=== PATIENT | female | born 1940 | race Caucasian/White ===

== ENCOUNTER 2017-05-24 09:36 | Inpatient (IN) | payer OTHER ==
[2017-05-05 09:29] VITALS: BMI 33.0
--- NOTE | 2017-05-05 10:10 | PAT Medication Instructions ---
Service Date May 05, 2017. Current Home Medication List Albuterol Sulfate (Proair Respiclick), 2 PUFF INH Q4 PRN for SOB/Wheezing Aspirin Enteric Coated (Ecotrin Or Generic *), 81 MG PO HS Atenolol (Tenormin), 25 MG PO QAM Calcium Citrate-Vitamin D (Citracal + D3 Maximum), 1 TAB PO NOON Cetirizine (Zyrtec), 10 MG PO QAM Coenzyme Q10 (Ubidecarenone) (Co Q10 *), 1 CAP PO NOON Fenofibrate (Tricor ), 134 MG PO QPM Fluticasone Prop/Salmeterol (Advair Hfa 115/21 Mcg *), 2 PUFF INH HS Gabapentin (Neurontin), 300 MG PO BID Lisinopril (Prinivil), 10 MG PO QPM Tizanidine (Zanaflex), 4 MG PO HS Tramadol (Ultram), 50 MG PO Q8H PRN for Pain [Cranberry/Vit C], 1 TAB PO NOON Medication Instructions For Your Scheduled Surgery - Hold the following medications 1 week prior to surgery: Aspirin Enteric Coated (Ecotrin Or Generic *), 81 MG PO HS (per surgeon's instructions) Coenzyme Q10 (Ubidecarenone) (Co Q10 *), 1 CAP PO NOON - Hold the following medications the morning of surgery: Cetirizine (Zyrtec), 10 MG PO QAM Calcium Citrate-Vitamin D (Citracal + D3 Maximum), 1 TAB PO NOON [Cranberry/Vit C], 1 TAB PO NOON - Take the following medications the morning of surgery with a sip of water OTHERWISE NOTHING TO EAT OR DRINK AFTER MIDNIGHT: Atenolol (Tenormin), 25 MG PO QAM Tramadol (Ultram), 50 MG PO Q8H PRN for Pain (may take if needed up to 4 hours prior to surgery) Albuterol Sulfate (Proair Respiclick), 2 PUFF INH Q4 PRN for SOB/Wheezing (use if needed; BRING TO HOSPITAL) Gabapentin (Neurontin), 300 MG PO BID - Take the following medications as scheduled the night before surgery: Tramadol (Ultram), 50 MG PO Q8H PRN for Pain Albuterol Sulfate (Proair Respiclick), 2 PUFF INH Q4 PRN for SOB/Wheezing Tizanidine (Zanaflex), 4 MG PO HS Fluticasone Prop/Salmeterol (Advair Hfa 115/21 Mcg *), 2 PUFF INH HS Gabapentin (Neurontin), 300 MG PO BID - Do not take the following the evening prior to surgery: Fenofibrate (Tricor ), 134 MG PO QPM Lisinopril (Prinivil), 10 MG PO QPM If you have any questions please call us at [phone] or [phone] or [phone]
[2017-05-05 10:42] LABS: BASO % 0.6 %; BASO ABS # 0.03 K/uL (0-0.2); COMPLETE YES; EOS % 3.2 %; HEMATOCRIT 42.6 % (37-47); IG% 0.2 %; LYMPH % 32.9 %; LYMPH ABS # 1.66 K/uL (1.2-3.4); MEAN CELL VOLUME 95.5 fL (80-100); MEAN CORPUSCULAR HGB CONC 31.5 g/dl (32-36); MEAN PLATELET VOLUME 9.4 fL (7.4-10.4); MONO % 10.9 %; NEUT % 52.2 %; PLATELET COUNT 206 K/uL (130-400); RED BLOOD COUNT 4.46 M/uL (4.2-5.4); WHITE BLOOD COUNT 5.05 K/uL (4.8-10.8)
[2017-05-05 11:11] LABS: BUN/CREATININE RATIO 29.2 (10-20); CALCIUM 9.6 mg/dl (8.5-10.1); CREATININE 1.5 mg/dl (0.60-1.20); POTASSIUM 4.9 mmol/L (3.5-5.1)
--- NOTE | 2017-05-05 11:11 | DIAGNOSTIC IMAGING REPORT ---
CHEST PREADMISSION(PA/LAT) CLINICAL HISTORY: 76 years-old Female presenting with preadmission chest x-ray. TECHNIQUE: PA and lateral views of the chest were obtained. COMPARISON: 09/08/2011 FINDINGS: Spinal stimulator noted. Cardiomediastinal silhouette is remarkable for atherosclerosis of the aortic arch. Lungs and pleural spaces clear. Multilevel degenerative changes of the thoracic spine. Cholecystectomy clips noted. IMPRESSION: 1. No acute cardiopulmonary disease. Electronically signed by: Donaldo Holcomb M.D. 05/05/2017 11:09 AM Dictated Date/Time: 05/05/2017 11:07 AM
[2017-05-05 16:39] LABS: URINE APPEARANCE CLEAR (CLEAR); URINE BILIRUBIN NEG (NEG); URINE COLOR YELLOW; URINE NITRITE NEG (NEG); URINE SPECIFIC GRAVITY 1.019 (1.000-1.030); UROBILINOGEN NEG (NEG)
[2017-05-05 16:40] LABS: MANUAL MICROSCOPIC REQUIRED? NO; REVIEW REQ? NO
[~2017-05-24] VITALS: Ht 152.4 cm; Wt 77.9 kg
[2017-05-24] VITALS (8 sets, daily range): BP systolic 110–176; BP diastolic 55–72; PULSE 60–67; TEMP 36.4–37.2; O2SAT 96–100; Ht 152.4 cm; Wt 77.9 kg
[~2017-05-24 09:36] MED LIST: ADVHFA115 INH; ALBU18002 INH; ASPEC81 PO; ATEN50TA8 PO; ATROPINE SULFATE 0.1 MG/ML 5ML SYR IV PRN; CALC1TAB9 PO; CETI10TA84 PO; CLINDAMYCIN 600 MG/54 ML D5W IV SCH; CLINDAMYCIN PHOS 150 MG/ML 2 ML VIAL IV SCH; COQ10100 PO; CRANBERRY/VIT C PO; CeleBREX 200 MG CAP PO SCH; EpHEDrine SULFATE INJ 50 MG/ML AMP IV PRN; FENO134C2 PO; FENTANYL CITRATE INJ 50 MCG/1 ML 2 ML VIAL IV PRN; GABA-113 PO; HYDR25TA4 PO; HYDROmorphone INJ 1 MG/ML SYR IV PRN; LACTATED RINGER'S 1000ML 1,000 ML IV SCH; ONDANSETRON INJ 2 MG/ML 2 ML VIAL IV PRN; PREGABALIN 75 MG CAP PO SCH; TIZA4CAP PO; TRAM-10 PO
[2017-05-24] MEDS ORDERED: ONDANSETRON INJ 2 MG/ML 2 ML VIAL ONE (10:38)
[2017-05-24] MEDS ORDERED: MIDAZOLAM HCL 1 MG/ML 2ML VIAL ONE (10:38)
[2017-05-24] MEDS ORDERED: PROPOFOL IV EMULSION 10 MG/ML 20 ML VIAL IV ONE (10:38)
[2017-05-24] MEDS ORDERED: DEXAMETHASONE SOD INJ 4 MG/ML VIAL ONE (10:38)
[2017-05-24] MEDS ORDERED: GLYCOPYRROLATE INJ 0.2 MG/ML VIAL ONE ×2 (10:38→13:23)
[2017-05-24] MEDS ORDERED: LIDOCAINE HCL 2% 2 ML VIAL (20MG/ML) ONE (10:38)
[2017-05-24] MEDS ORDERED: NEOSTIGMINE METHYLSULFATE 1 MG/ML 10ML VIAL ONE (10:38)
[2017-05-24] MEDS ORDERED: ROCURONIUM BROMIDE 10 MG/ML 5 ML VIAL ONE (10:38)
[2017-05-24] MEDS ORDERED: FENTANYL CITRATE INJ 50 MCG/1 ML 2 ML VIAL ONE ×2 (10:39)
--- NOTE | 2017-05-24 11:41 | History & Physical Bridge Note ---
H&P Re-Evaluation Bridge Note: I have examined the patient, reviewed the History & Physical and in the interval since the performance of the History & Physical I have noted the following changes of clinical significance: No changes noted
[2017-05-24] MEDS ORDERED: THROMBIN FOR SOLN 20000 UNIT KIT ONE (12:00)
[2017-05-24] MEDS ORDERED: HEPARIN SOD (PORCINE) 1000 UNIT/ML 10 ML VIAL ONE (12:01)
[2017-05-24] MEDS ORDERED: BUPIVACAINE/EPINEPHRINE 0.5% MPF 1:200,000 10 ML VIAL ONE (12:01)
[2017-05-24] MEDS ORDERED: THROMBIN 5000 UNITS KIT ONE (12:01)
[2017-05-24] MEDS ORDERED: BACITRACIN 50000 UNIT VIAL ONE (12:01)
--- NOTE | 2017-05-24 12:04 | History and Physical ---
History & Physical Date May 24, 2017. Chief Complaint LBP History of Present Illness The patient is a 76 year old female with complaints of LBP bilateral leg pain. History of L4-5 instrumented fusion. subsequent SCS implanted without success. now she describes neurogenic claudication, bilateral leg pain and cramping. CT scan shows L3-4 stenosis, L5-S1 facet djd and DDD. She denies weakness/ incontinence. failed PT and ESIs. desires surgery. Past Medical/Surgical History GERD hi chol HTN OA DDD asthma osteoporosis renal insufficiency medically cleared as moderate risk s/p TKA bladder surgery l;umbar fusion jono hyster tonsillectomy YANET Additional History Hepatic Disease: No Endocrine Disorder: No Kidney Disease: Yes (Cr 1.3 and stable) Hypertension: Yes Heart Disease: No Bleeding Tendencies: No Infectious Diseases: No Allergies Coded Allergies: Tetracycline (Verified Allergy, Severe, DIFFICULTY SWALLOWING, 05/24/17) Penicillins (Verified Allergy, Intermediate, HANDS AND ARMS RED AND ITCHY , 05/24/17) Omeprazole (Verified Allergy, Unknown, DIZZINESS, 05/24/17) Terconazole (Verified Allergy, Unknown, VAG SWELLING, BURNING, 05/24/17) Acetaminophen (Verified Adverse Reaction, Unknown, severe nausea, 05/24/17) Atorvastatin (Verified Adverse Reaction, Unknown, MUSCLE PAIN, 05/24/17) Cephalosporins (Verified Adverse Reaction, Unknown, GI SX, 05/24/17) Ezetimibe (Verified Adverse Reaction, Unknown, STOMACH PAINS, 05/24/17) HMG-CoA-R Inhibitors (Verified Adverse Reaction, Unknown, LEG CRAMPS WITH CRESTOR, 05/24/17) Oxycodone (Verified Adverse Reaction, Unknown, severe nausea, 05/24/17) Simvastatin (Verified Adverse Reaction, Unknown, MYALGIAS, 05/24/17) Home Medications Scheduled Aspirin Enteric Coated (Ecotrin Or Generic *), 81 MG PO HS Atenolol (Tenormin), 25 MG PO QAM Calcium Citrate-Vitamin D (Citracal + D3 Maximum), 1 TAB PO NOON Cetirizine (Zyrtec), 10 MG PO QAM Coenzyme Q10 (Ubidecarenone) (Co Q10 *), 1 CAP PO NOON Fenofibrate (Tricor ), 134 MG PO QPM Fluticasone Prop/Salmeterol (Advair Hfa 115/21 Mcg *), 2 PUFF INH HS Gabapentin (Neurontin), 300 MG PO BID Hydrochlorothiazide (Hctz), 25 MG PO DAILY Tizanidine (Zanaflex), 4 MG PO HS [Cranberry/Vit C], 1 TAB PO NOON Scheduled PRN Albuterol Sulfate (Proair Respiclick), 2 PUFF INH Q4 PRN for SOB/Wheezing Tramadol (Ultram), 50 MG PO Q8H PRN for Pain Physical Examination Skin: warm/dry Eyes: normal inspection ENT: normal ENT inspection Head: normocephalic, atraumatic Neck: supple, no adenopathy, trachea midline Respiratory/Chest: lungs clear, normal breath sounds Cardiovascular: regular rate, rhythm Back: normal inspection (scars noted) Extremities: normal inspection, normal range of motion Neurologic/Psych: no motor/sensory deficits, normal reflexes, oriented x 3 Diagnosis L3-4 and L5-S1 DDD and facet djd. prior L4-5 instrumented PSF, failed SCS Plan of Treatment SCS removal, L4-5 HWR, L3-4 decompression and fusion and extension of fusion to S1. risks reviewed, patient agreed.
[2017-05-24] MEDS ORDERED: LARYING-O-JET KIT (LTA) ONE ×2 (12:31)
[2017-05-24] MEDS ORDERED: HYDROmorphone INJ 2 MG/ML SYR/VIAL ONE (12:31)
[2017-05-24] MEDS ORDERED: EpHEDrine SULFATE 50MG/5ML SYR ONE (13:23)
[2017-05-24] MEDS ORDERED: FLOSEAL HEMOSTATIC MATRIX 10ML TOP ONE (13:51)
--- NOTE | 2017-05-24 14:12 | [facility] Post Operative Brief Note ---
Immediate Operative Summary Operative Date May 24, 2017. Pre-Operative Diagnosis L3-4 and L5-S1 degenerative disc disease; and facet degenerative joint disease; prior L4-5 instrumented posterior spinal fusion; failed spinal cord stimulator Post-Operative Diagnosis L3-4 and L5-S1 degenerative disc disease; and facet degenerative joint disease; prior L4-5 instrumented posterior spinal fusion; failed spinal cord stimulator Procedure(s) Performed L3-S1 Decompression and Instrumented Fusion; L4-L5 Hardware Removal; Spinal Cord Stimulator Removal;Infuse; Arteriocyte; Autograft; Allograft Surgeon Dr. Adelfo Novak Drop Forger Helper Surgeon(s) None Estimated Blood Loss 100 cc Findings see dict Specimens A. removed spinal cord stimulator B: Explanted lumbar hardware
[2017-05-24] MEDS ORDERED: SODIUM CHLORIDE 0.9% 1000ML 1,000 ML IV SCH (14:20)
--- NOTE | 2017-05-24 14:20 | [facility] Operative Report ---
Operative Report Operative Date May 24, 2017. Pre-Operative Diagnosis L3-4 and L5-S1 degenerative disc disease; and facet degenerative joint disease; prior L4-5 instrumented posterior spinal fusion; failed spinal cord stimulator Post-Operative Diagnosis L3-4 and L5-S1 degenerative disc disease; and facet degenerative joint disease; prior L4-5 instrumented posterior spinal fusion; failed spinal cord stimulator Procedure(s) Performed 1. L3 laminectomy and medial facetectomies 2. HWR L4-5 3. bilateral pedicle screw instr L3-S1 K2M everest screws 4. exploration fusion mass L4-5 bilateral 5. SCS removal with paddle lead retention 6. R iliac crest BMA Surgeon Dr. Adelfo Novak Street Department Dispatcher Surgeon(s) None Estimated Blood Loss 100 cc Findings see dict Specimens A. removed spinal cord stimulator B: Explanted lumbar hardware Drains 1 Complication(s) None Description of Procedure After identification of the patient and the operative level they were brought to the OR where they underwent induction of general anesthesia. They were positioned prone on a Jose Cruz spine table with all bony prominence well-padded. Care was taken to avoid pressure on the periorbital area. The lumbosacral area was sterilely prepped and draped in the usual fashion. Antibiotics were administered, a time-out was performed, level was confirmed, and skin incision was with localized lateral fluoroscopy and a spinal needle. The skin was infiltrated with half percent Marcaine with epinephrine. I made skin incision over the pouch in the right buttock for battery removal and produced the battery. The SCS was confirmed to be off prior to surgery. I then exposed the anchors in the lower thoracic spine minimizing use of electrocautery near the anchors and insulated wires. I then released the anchors and gave the wires a gentle pull to see if the paddle leads which were 3-4 levels cephalad were loose and mobile. they were not, therefore I opted to cut the wires and not perform a multilevel laminectomy to dissect the paddles free. I then made skin incision from the spinous process of L3-S1. The dorsal fascia was incised and posterior exposure was accomplished with dissection out to the tips of the transverse processes from L3-S1 bilaterally. I then packed the gutters with thrombin-soaked sponges and used fluoroscopy to confirm the operative levels with markers at the operative levels. After identification of the appropriate level I placed Gelpi retractors and proceeded to perform midline decompression. Laminectomies of L3 were performed in the midline with takedown of the intervening ligamentum flavum. I then used an osteotome to remove the medial facets at L3-4. Facet hypertrophy and degenerative changes were noted at the operative levels. I then completed decompression with Kerrison rongeurs and palpated the nerve roots were adequately decompressed at the operative levels from L3-4 bilaterally. I palpated all nerve roots were decompressed adequately. I then obtained hemostasis of epidural bleeding with bipolar cautery and Surgiflo. I removed the screws at L4-5 and explored the fusion mass , confirming solid fusion at this level. I then proceeded to place pedicle screws bilaterally at L3-S1, skipping Left L5 with bony anatomy confirmed to be intact with the ball-tipped feeler. I confirmed screw length, trajectory, and position with fluoroscopy. Bone graft consisted of morselized local bone from laminectomy bone as well as bone graft location manager saturated with stem cell concentrate. I obtained stem cell concentrate using a stem cell concentration system after aspiration of bone marrow from the right iliac crest via a separate stab incisions with a Jamshidi needle. I then applied this to bone graft location manager. I then lowered the Carlos frame to restore lordosis. I applied rods and end caps bilaterally with final tightening of all caps. I irrigated all incisions with bacitracin solution. I then decorticated the transverse processes bilaterally at the operative levels from L3-4 and L5-S1 as well as facet joints with a high-speed bur. I then packed the lateral gutters and facets with the bone graft mixture consisting of: infuse BMP and a collagen sponge, tricalcium phosphate logs, stem cell concentrate, morcellized local bone, and bone graft location manager. I then confirmed hemostasis and closed in a layered fashion over a KAELA drain. All sponge and needle counts were correct in the case. Please note my PA-C participated in all portions of the procedure and was critical for performance of the procedure by assisting in positioning, prepping, draping, suction, retraction, and wound closure. I attest to the content of the Intraoperative Record and any orders documented therein. Any exceptions are noted below.
--- NOTE | 2017-05-24 14:25 | Discharge Instructions ---
Discharge Instructions Date of Service May 24, 2017. Admission Reason for Admission: Spinal Stenosis Discharge Discharge Diagnosis / Problem: same Discharge Goals Goal(s): Decrease discomfort Activity Recommendations Activity Limitations: per Instructions/Follow-up section . Instructions / Follow-Up Instructions / Follow-Up ACTIVITY RECOMMENDATIONS: SELF CARE INSTRUCTIONS AFTER THORACIC/LUMBAR FUSIONS 1. You may walk to your tolerance. It is good exercise for your legs and back. Expect some back and intermittent leg aches and pains. 2. You may perform "counter-top" level activities (make a sandwich, sallie with a project, etc.). 3. No bending or lifting of more than 10 pounds or back twisting of any nature (roll like a log when turning in bed). 4. You may ride in a car for 20-30 minutes at a time. No driving until after your first visit with your doctor. 5. Frequent changes of position and restricting sitting to 30 minutes at a time will help limit the amount of back spasms and stiffness you may experience. 6. You may discontinue the use of ambulatory aids (cane, crutches, etc.) once your strength and confidence allow. 7. You may international recruiter the shower and let water strike your incision when you arrive home at least once daily. Do not take a tub bath, sit in a hot tub or go into a swimming pool until after your first recheck in the office. SPECIAL CARE INSTRUCTIONS: VERY IMPORTANT TO READ AND REVIEW B. Complications are uncommon, but please contact us if you have any signs or symptoms of: 1. wound infection (fever higher than 102.5 degrees F, redness, separation of wound, drainage, or increasing pain from the incision) 2. blood clots in legs (pain, swelling, redness and warmth in legs) 3. urinary tract infection (fever higher than 102.5 degrees F, burning upon urination or increased frequency of urination) 4. nerve problems (inability to walk on your toes or heels, numbness, loss of bowel or bladder control) 5. any other symptoms that concern you C. Please call the office at if you have any concerns or questions about your operation or recovery. D. No smoking! Smoking drastically decreases the chance of a solid fusion. E. Do not take any anti-inflammatory medications (Indocin, Advil, Motrin, Aspirin, Naprosyn, etc.) as these may inhibit the chance of a solid fusion. Tylenol is okay to take for pain. MANAGING PAIN AFTER SPINAL SURGERY 1. Narcotic medication is intended for short-term use and will be provided for surgical pain. Surgical pain usually lasts for a period of 4-6 weeks. Narcotic medication includes Percocet, Vicodin, Darvocet, Tylenol #3 or Lortab. 2. Longer-term pain is more appropriately treated with non-narcotic medication such as Tylenol ES. 3. Muscle spasm is not appropriately treated with narcotics. Muscle relaxers such as Soma, Flexeril or Skelaxin can be used along with Tylenol ES. 4. Remember that we all live with some "aches and pains". This is not unusual or uncommon after an injury or as we get older. a. Back pain is expected and may include muscle spasms for 4 to 6 weeks after surgery. The pain should gradually improve. If the pain worsens for no apparent reason, please contact the office. b. Intermittent leg pain may also be experienced and should not be concerned about unless it worsens for no apparent reason. If so, please contact the office. 5. We will provide appropriate medication within the normal guidelines of their prescribed use. We will also be very cautious and aware of potential abuse and extended duration of patients' medication needs. a. Pain medications are for your comfort and to assist with sleep and rest so that the tissue can heal. They are not provided in order to return to normal activity and should not be used through the day. To do so or worsening pain at night can result from ongoing tissue damage and development of tolerance to the prescribed medicine. 6. Please allow 2-3 days to process refills. Prescriptions will not be mailed but must be picked up at the office. FOLLOW UP VISIT: Keep your scheduled follow-up appointment. Any questions, please call the office at . Current Hospital Diet Patient's current hospital diet: Regular Diet Discharge Diet Recommended Diet: Regular Diet Procedures Procedures Performed: 1. L3 laminectomy and medial facetectomies 2. HWR L4-5 3. bilateral pedicle screw instr L3-S1 K2M everest screws 4. exploration fusion mass L4-5 bilateral 5. SCS removal with paddle lead retention 6. R iliac crest BMA Pending Studies Studies pending at discharge: no Medical Emergencies . Who to Call and When: Medical Emergencies: If at any time you feel your situation is an emergency, please call 911 immediately. . Non-Emergent Contact Non-Emergency issues call your: Surgeon . "Provider Documentation" section prepared by Adelfo Novak. . VTE Core Measure Inpt VTE Proph given/why not?: Cristy Escobar, SCD's PA Drug Monitoring Program Search Results: patient reviewed within database, no issues identified
[2017-05-24] MEDS ORDERED: NALOXONE HCL 0.4 MG/1 ML VIAL/CARP IV PRN ×2 (14:30)
[2017-05-24] MEDS ORDERED: PROMETHAZINE HCL INJ 12.5 MG in SODIUM CHLORIDE 0.9% 50ML 50 ML IV PRN (14:30)
[2017-05-24] MEDS ORDERED: ONDANSETRON INJ 2 MG/ML 2 ML VIAL IV PRN (14:30)
[2017-05-24] MEDS ORDERED: LORAZEPAM 0.5 MG TAB PO PRN (14:30)
[2017-05-24] MEDS ORDERED: LORAZEPAM INJ 0.5 MG in SYRINGE 0.75 ML IV PRN (14:30)
[2017-05-24] MEDS ORDERED: BISACODYL 10 MG SUPP PR PRN (14:30)
[2017-05-24] MEDS ORDERED: ALUMINUM/MAGNESIUM SUSP 30 ML UDC PO PRN (14:30)
[2017-05-24] MEDS ORDERED: FAMOTIDINE 20 MG TAB PO PRN (14:30)
[2017-05-24] MEDS ORDERED: SOD PHOSPHATE/SOD BIPHOSPHATE ENEMA 132 ML BTL PR PRN (14:30)
--- NOTE | 2017-05-24 14:30 | DIAGNOSTIC IMAGING REPORT ---
INTRAOPERATIVE RADIOGRAPHS CLINICAL HISTORY: Spinal fusion. Fluoroscopy time: 15 seconds. FINDINGS: 4 spot fluoroscopic views of the lumbar spine are presented. There are postoperative changes from laminectomy and posterior fusion seen from L3 -S1. Interpedicular screws are present at all levels, only on the right at L5. There is evidence of discectomy at L4-L5. The orthopedic hardware appears intact. Intrathecal leads are noted and project over the lower thoracic region. Skin clips are present posteriorly. IMPRESSION: Intraoperative images from lumbar spinal fusion surgery as above. Electronically signed by: Luis Head M.D. 05/24/2017 2:29 PM Dictated Date/Time: 05/24/2017 2:28 PM
[2017-05-24] MEDS ORDERED: HYDROmorphone HCL 0.5MG/ML 50 ML CASSETTE ONE (14:56)
[2017-05-24] MEDS ORDERED: ALBUTEROL HFA 8 GM INHALER INH PRN (15:15)
[2017-05-24] MEDS: HYDROmorphone HCL 0.5MG/ML 50 ML CASSETTE IV PRN ×3 (15:25→23:04)
--- NOTE | 2017-05-24 15:36 | Anesthesiology Progress Note ---
Anesthesia Post Op Note Date & Time May 24, 2017 at 15:36 Vital Signs Pain Intensity: 2 Vital Signs Past 12 Hours Date Time Temp Pulse Resp B/P (MAP) Pulse Ox O2 Delivery O2 Flow Rate FiO2 05/24/17 15:31 36.9 16 159/60 05/24/17 15:30 65 12 100 05/24/17 15:30 65 12 05/24/17 15:27 147/62 05/24/17 15:25 61 14 05/24/17 15:25 60 14 98 05/24/17 15:22 152/53 05/24/17 15:20 62 11 98 05/24/17 15:20 62 11 05/24/17 15:17 150/50 05/24/17 15:15 61 12 05/24/17 15:15 61 12 96 05/24/17 15:12 158/56 05/24/17 15:10 70 13 99 05/24/17 15:10 70 13 05/24/17 15:07 167/45 05/24/17 15:05 68 9 05/24/17 15:05 69 9 100 05/24/17 15:02 168/57 05/24/17 15:00 74 13 05/24/17 15:00 75 13 170/58 100 05/24/17 14:58 97/94 05/24/17 14:55 78 12 05/24/17 14:55 78 12 100 05/24/17 14:53 176/69 05/24/17 14:50 36.6 83 16 178/69 100 Mask 10 05/24/17 10:16 36.9 62 18 173/64 97 Room Air Notes Mental Status: alert / awake / arousable, participated in evaluation Pt Amnestic to Procedure: Yes Nausea / Vomiting: adequately controlled Pain: adequately controlled Airway Patency, RR, SpO2: stable & adequate BP & HR: stable & adequate Hydration State: stable & adequate Anesthetic Complications: no major complications apparent
[2017-05-24] MEDS: SODIUM CHLORIDE 0.9% 1000ML 1,000 ML IV SCH (17:35)
[2017-05-24] MEDS: CLINDAMYCIN IV 600 MG in DEXTROSE 5% 50ML 50 ML IV SCH (20:04)
[2017-05-24] MEDS: DEXAMETHASONE INJ 6 MG in SYRINGE 0 ML IV SCH (20:04)
[2017-05-24] MEDS: DOCUSATE SODIUM/SENNA 50/8.6MG TAB PO SCH (21:06)
[2017-05-24] MEDS: GABAPENTIN 300 MG CAP PO SCH (21:06)
[2017-05-25 03:23] VITALS: BP 118/57; PULSE 67; TEMP 37; O2SAT 93
[2017-05-25] MEDS: CLINDAMYCIN IV 600 MG in DEXTROSE 5% 50ML 50 ML IV SCH (04:03)
[2017-05-25] MEDS: SODIUM CHLORIDE 0.9% 1000ML 1,000 ML IV SCH (04:04)
[2017-05-25] MEDS: DEXAMETHASONE INJ 6 MG in SYRINGE 0 ML IV SCH ×2 (04:04→12:09)
--- NOTE | 2017-05-25 05:40 | Orthopedic Progress Note ---
Orthopedic Progress Note Date of Service May 25, 2017. Subjective Post OP Day: 1 Reports: feeling well, using EXERCISE PHYSIOLOGIST CERTIFIED, Denies: complaints, chest pain, SOB, nausea / vomiting, light headedness, calf pain Objective calves soft nontender, N/V intact, dressing C/D/I, A&O x3, hemovac drainage Date Time Temp Pulse Resp B/P (MAP) Pulse Ox O2 Delivery O2 Flow Rate FiO2 05/25/17 03:23 37.0 67 16 118/57 (77) 93 Room Air 05/24/17 23:40 Room Air 05/24/17 22:46 36.8 67 16 110/59 (76) 96 Room Air 05/24/17 19:19 98 Nasal Cannula 4.0 05/24/17 18:47 36.8 65 18 144/65 (91) 100 Nasal Cannula 4.0 05/24/17 17:52 37.2 60 18 121/55 (77) 100 Nasal Cannula 4.0 05/24/17 16:49 36.9 62 17 150/68 (95) 96 Nasal Cannula 4.0 05/24/17 16:47 98 Nasal Cannula 4.0 05/24/17 16:13 36.4 63 17 146/72 (96) 100 Nasal Cannula 4.0 05/24/17 15:53 36.4 64 16 176/69 (104) 98 Nasal Cannula 4.0 05/24/17 15:31 36.9 16 159/60 05/24/17 15:30 65 12 100 05/24/17 15:30 65 12 05/24/17 15:27 147/62 05/24/17 15:25 61 14 05/24/17 15:25 60 14 98 05/24/17 15:22 152/53 05/24/17 15:20 62 11 98 05/24/17 15:20 62 11 05/24/17 15:17 150/50 05/24/17 15:15 61 12 05/24/17 15:15 61 12 96 05/24/17 15:12 158/56 05/24/17 15:10 70 13 99 05/24/17 15:10 70 13 05/24/17 15:07 167/45 05/24/17 15:05 68 9 05/24/17 15:05 69 9 100 05/24/17 15:02 168/57 05/24/17 15:00 74 13 05/24/17 15:00 75 13 170/58 100 05/24/17 14:58 97/94 05/24/17 14:55 78 12 05/24/17 14:55 78 12 100 05/24/17 14:53 176/69 05/24/17 14:50 36.6 83 16 178/69 100 Mask 10 05/24/17 10:16 36.9 62 18 173/64 97 Room Air Laboratory Results 24 Hours: Test 05/25/17 05:13 Assessment & Plan Assessment: stable Plan: PT, SCDs, monitor hgb/Cr,
[2017-05-25] MEDS ORDERED: DC PCA ONE (06:00)
[2017-05-25] MEDS ORDERED: NURSING DECISION MEDICATION ORDER SCH (06:00)
[2017-05-25] MEDS ORDERED: HYDROmorphone INJ 1 MG/ML SYR IV PRN (06:00)
[2017-05-25] MEDS ORDERED: HYDROmorphone INJ 0.5 MG/0.5 ML SYR IV PRN (06:00)
[2017-05-25 06:20] LABS: COMPLETE YES; HEMATOCRIT 37.2 % (37-47); IG% 0.2 %; LYMPH % 6.7 %; LYMPH ABS # 0.72 K/uL (1.2-3.4); MEAN CELL VOLUME 94.4 fL (80-100); MEAN CORPUSCULAR HEMOGLOBIN 29.4 pg (25-34); MEAN CORPUSCULAR HGB CONC 31.2 g/dl (32-36); MEAN PLATELET VOLUME 8.9 fL (7.4-10.4); MONO % 4.6 %; NEUT % 88.5 %; PLATELET COUNT 226 K/uL (130-400); RED BLOOD COUNT 3.94 M/uL (4.2-5.4); WHITE BLOOD COUNT 10.67 K/uL (4.8-10.8)
[2017-05-25 06:58] LABS: CALCIUM 7.9 mg/dl (8.5-10.1); CREATININE 1.4 mg/dl (0.60-1.20); POTASSIUM 4.7 mmol/L (3.5-5.1)
[2017-05-25 07:58] VITALS: BP 142/68; PULSE 65; TEMP 36.7; O2SAT 94
[2017-05-25] MEDS: GABAPENTIN 300 MG CAP PO SCH ×2 (08:39→21:09)
[2017-05-25] MEDS: CETIRIZINE HCL 10 MG TAB PO SCH (08:39)
[2017-05-25] MEDS: TRAMADOL HCL 50 MG TAB PO PRN (08:40)
[2017-05-25] MEDS: MAGNESIUM HYDROXIDE SUSP 30 ML UDC PO PRN (08:40)
--- NOTE | 2017-05-25 10:34 | Clinical Documentation Query ---
CLINICAL DOCUMENTATION QUERY 76-y/o female who has undergone L3-S1 fusion. H&P states this patient has having renal insufficiency. The physician should include in his/her medical record documentation the specific type and/or stage of kidney disease. Documenting the stage of CKD will improve data integrity and will help clarify vague terms such as "renal insufficiency" or "chronic renal failure." In your clinical opinion is this patient being managed for: ( ) Chronic kidney disease (CKD), stage 3 evidenced by elevated baseline creatinine and GFR 30-50. ( ) Other explanation of clinical findings (Please Explain) ( ) Unable to determine (Please Define) ( ) Need to Discuss ( ) Not Agree The medical record reflects the following clinical findings, treatment, and risk factors. Clinical Indicators: As above. Documenting the stage of CKD will improve data integrity and will help clarify vague terms such as "renal insufficiency" or "chronic renal failure." Treatment: IVF's, daily PRP, Risk Factors: Age, NSAID, and HCTZ therapy. The stages of CKD according to the [employer] are as follows: Stage I: GFR >90 Stage II: GFR 60-89 Stage III: GFR 30-59 Stage IV: GFR 15-29 Stage V: GFR <15 Please clarify and document your clinical opinion in the progress notes and discharge summary. Terms such as "probable", "suspected", "likely", "questionable", "possible", or "still to be ruled out" are acceptable. IF IN AGREEMENT, YOU MUST DOCUMENT ABOVE DIAGNOSTIC STATEMENT IN DAILY PROGRESS NOTES AND DISCHARGE SUMMARY. This document is not part of the patient's record. Thank You, Jose Cross, RN [phone]
[2017-05-25 11:05] VITALS: O2SAT 94
[2017-05-25 11:53] VITALS: BP 124/72; PULSE 62; TEMP 36.6; O2SAT 100
[2017-05-25] MEDS ORDERED: COUGH DROP (SUGAR FREE) LOZ 24 LOZ/1 BOX PO PRN (12:00)
[2017-05-25] MEDS ORDERED: NURSING VERBAL MED ORDER ONE (12:00)
[2017-05-25 15:13] VITALS: BP 131/64; PULSE 59; TEMP 37; O2SAT 97
[2017-05-25] MEDS: DOCUSATE SODIUM/SENNA 50/8.6MG TAB PO SCH (21:09)
[2017-05-25 22:56] VITALS: BP 126/55; PULSE 64; TEMP 37.1; O2SAT 96
[2017-05-26] MEDS: TRAMADOL HCL 50 MG TAB PO PRN ×4 (00:31→20:44)
[2017-05-26] MEDS: POLYETHYLENE (MIRALAX) 17 GM PACK PO SCH ×4 (06:12→23:06)
[2017-05-26 08:11] VITALS: BP 158/80; PULSE 62; TEMP 36.6; O2SAT 98
[2017-05-26 08:41] VITALS: O2SAT 98
[2017-05-26] MEDS: CETIRIZINE HCL 10 MG TAB PO SCH (08:59)
[2017-05-26] MEDS: GABAPENTIN 300 MG CAP PO SCH ×2 (10:03→20:40)
[2017-05-26 11:45] VITALS: BP 149/72; PULSE 60
[2017-05-26] MEDS ORDERED: TRAM-10 PO (12:13)
--- NOTE | 2017-05-26 12:15 | Orthopedic Progress Note ---
Orthopedic Progress Note Date of Service May 26, 2017. Subjective Post OP Day: 2 Reports: feeling well, pain controlled w PO medications, Denies: complaints, chest pain, SOB, nausea / vomiting, light headedness, calf pain, using ICE SCRAPER Objective calves soft nontender, capillary refill less than 2 sec., dressing C/D/I, A&O x3 , hemovac drainage Date Time Temp Pulse Resp B/P (MAP) Pulse Ox O2 Delivery O2 Flow Rate FiO2 05/26/17 11:45 60 149/72 (97) 05/26/17 08:41 98 Room Air 05/26/17 08:11 36.6 62 16 158/80 (106) 98 Room Air 05/26/17 07:20 Room Air 05/25/17 23:25 Room Air 05/25/17 22:56 37.1 64 16 126/55 (78) 96 Room Air 05/25/17 16:00 Room Air 05/25/17 15:13 37.0 59 17 131/64 (86) 97 Room Air Assessment & Plan Assessment: stable Plan: PT, SCDs, monitor hgb/Cr, d/c tuesday
--- NOTE | 2017-05-26 12:15 | Discharge Summary ---
Orthopedic Discharge Summary Admission Date/Reason May 24, 2017 at 11:35 Spinal Stenosis. Discharge Date/Disposition May 26, 2017 Home Diagnosis Principal Diagnosis: same Medication Reconciliation Continued Medications: Albuterol Sulfate (Proair Respiclick) 108 Mcg/Act Aer 2 PUFF INH Q4 PRN for SOB/Wheezing Aspirin Enteric Coated (Ecotrin Or Generic *) 81 Mg Ectab 81 MG PO HS, 0 Refills Atenolol (Tenormin) 50 Mg Tab 25 MG PO QAM, 0 Refills Calcium Citrate-Vitamin D (Citracal + D3 Maximum) 1 Tab Tab 1 TAB PO NOON Cetirizine (Zyrtec) 10 Mg Tab 10 MG PO QAM, TAB Coenzyme Q10 (Ubidecarenone) (Co Q10 *) 100 Mg Cap 1 CAP PO NOON, 0 Refills Fenofibrate (Tricor ) 134 Mg Cap 134 MG PO QPM, 0 Refills Fluticasone Prop/Salmeterol (Advair Hfa 115/21 Mcg *) Aerp 2 PUFF INH HS, 0 Refills Gabapentin (Neurontin) 300 Mg Cap 300 MG PO BID, CAP Hydrochlorothiazide (Hctz) 25 Mg Tab 25 MG PO DAILY, TAB Tizanidine (Zanaflex) 4 Mg Cap 4 MG PO HS, CAP Tramadol (Ultram) 50 Mg Tab 50 MG PO Q8H PRN for Pain, #90 TAB (This prescription has been renewed) [Cranberry/Vit C] () 1 TAB PO NOON, 0 Refills Admission Physical Exam As per Admitting History & Physical. Hospital Course Patient was admitted for elective lumbar fusion, tolerated the procedure, was stable on floor, had pain controlled and d/c d home in stable condition after PT and return of bowel function Discharge Instructions Please refer to the electronic Patient Visit Report (Discharge Instructions) for additional information.
[2017-05-26 15:50] VITALS: BP 109/65; PULSE 57; TEMP 37; O2SAT 95
[2017-05-26] MEDS: DOCUSATE SODIUM/SENNA 50/8.6MG TAB PO SCH (20:41)
[2017-05-26] MEDS ORDERED: ADVAIR INH SCH (21:00)
[2017-05-26 22:45] VITALS: BP 148/77; PULSE 69; TEMP 37.1; O2SAT 99
[2017-05-26] MEDS ORDERED: POLYETHYLENE (MIRALAX) 17 GM PACK ONE (23:01)
[2017-05-27] MEDS: TRAMADOL HCL 50 MG TAB PO PRN (04:05)
[2017-05-27] MEDS: MAGNESIUM HYDROXIDE SUSP 30 ML UDC PO PRN (04:06)
[2017-05-27 05:04] VITALS: BP 153/73; PULSE 67
[2017-05-27] MEDS: POLYETHYLENE (MIRALAX) 17 GM PACK PO SCH (06:00)
[2017-05-27 06:55] VITALS: BP 127/70; PULSE 62; TEMP 37.2; O2SAT 95
[2017-05-27] MEDS: CETIRIZINE HCL 10 MG TAB PO SCH (08:58)
[2017-05-27] MEDS: GABAPENTIN 300 MG CAP PO SCH (08:58)
[2017-05-27] MEDS ORDERED: NURSING VERBAL MED ORDER ONE (10:15)
[2017-05-27 15:07] VITALS: BP 127/70; PULSE 62; TEMP 37.2; O2SAT 95
[2017-05-27 15:09] VITALS: BP 169/70; PULSE 64; TEMP 37; O2SAT 96
== END 2017-05-27 15:44 | disposition home or self-care (01) | DRG 460 ==
LOC: C.ACU 09:36 → C.3E 11:35 → ENRESERV 15:09
PROVIDERS: ADMIT Orthopaedic Surgery Orthopaedic Surgery of the Spine; ATTEND Orthopaedic Surgery Orthopaedic Surgery of the Spine
PROC: 3E0U0GB Introduction of Recombinant Bone Morphogenetic Protein into Joints, Open Approach (ICD-10-PCS; principal; 2017-05-24 11:30)
PROC: 0SG1071 Fusion of 2 or more Lumbar Vertebral Joints with Autologous Tissue Substitute, Posterior Approach, Posterior Column, Open Approach (ICD-10-PCS; principal; 2017-05-24 11:30)
PROC: 07DR3ZZ Extraction of Iliac Bone Marrow, Percutaneous Approach (ICD-10-PCS; principal; 2017-05-24 11:30)
PROC: 0SG3071 Fusion of Lumbosacral Joint with Autologous Tissue Substitute, Posterior Approach, Posterior Column, Open Approach (ICD-10-PCS; principal; 2017-05-24 11:30)
PROC: 0JPT0MZ Removal of Stimulator Generator from Trunk Subcutaneous Tissue and Fascia, Open Approach (ICD-10-PCS; principal; 2017-05-24 11:30)
PROC: 0SP004Z Removal of Internal Fixation Device from Lumbar Vertebral Joint, Open Approach (ICD-10-PCS; principal; 2017-05-24 11:30)
DX: M51.36 Other intervertebral disc degeneration, lumbar region (principal); T85.890A Other specified complication of nervous system prosthetic devices, implants and grafts, initial encounter; M51.37 Other intervertebral disc degeneration, lumbosacral region; M47.817 Spondylosis without myelopathy or radiculopathy, lumbosacral region; M48.06 Spinal stenosis, lumbar region; Y75.1 Therapeutic (nonsurgical) and rehabilitative neurological devices associated with adverse incidents; J45.909 Unspecified asthma, uncomplicated; I12.9 Hypertensive chronic kidney disease with stage 1 through stage 4 chronic kidney disease, or unspecified chronic kidney disease; E11.22 Type 2 diabetes mellitus with diabetic chronic kidney disease; N18.3 Chronic kidney disease, stage 3 (moderate); E78.00 Pure hypercholesterolemia, unspecified; M19.90 Unspecified osteoarthritis, unspecified site; E66.9 Obesity, unspecified; Z68.33 Body mass index [BMI] 33.0-33.9, adult; Z96.652 Presence of left artificial knee joint; Z96.642 Presence of left artificial hip joint; Z98.1 Arthrodesis status; Z79.82 Long term (current) use of aspirin; Z79.51 Long term (current) use of inhaled steroids; Z79.891 Long term (current) use of opiate analgesic; Z79.899 Other long term (current) drug therapy